=== PATIENT | male | born 2005 | race African-American/Black ===

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

== ENCOUNTER 2024-06-09 14:45 | Emergency (ER) | payer MEDICAID ==
[~2024-06-09] VITALS: Ht 182.9 cm; Wt 82.0 kg
--- NOTE | 2024-06-09 14:54 | ED.PDOC ---
HPI Allergic reaction HPI Comments 18Y M presents to ED via EMS for chief complaint allergic reaction x2days. Pt states he ate shrimp on Friday and then began to experience tongue swelling and muffled voice that same night. Pt has never experienced a reaction from shrimp before. No other symptoms reported. Time Seen by MD: 14:45 Primary Care Provider: NONE Reviewed Notes: Nurses Notes, Supervisor Coremaker Notes, Medications, Allergies Allergies: Coded Allergies: NO KNOWN ALLERGIES (Unverified , 07/11/17) Information Source: Patient, Friend, Emergency Med Personnel Mode of Arrival: EMS Brought in by: EMS Severity: Mild Rash: None SOB: None Difficulty swallowing: Mild Pruritus: None Timing: Days Duration: Since onset Prehospital treatment: None Location: Face, Tongue Exposed to: Food Developed: Facial Swelling History of: None Modyifying Factors: Not Used Associated Sign and Symptoms: None Past Medical History PAST MEDICAL HISTORY: Denies Surgical History: Denies all surgeries Family History Family History: Unknown Social History Smoker: Non-Smoker Alcohol: Denies ETOH Use Drugs: Denies Drug Use Lives In: Home Constitutional: denies: chills, diaphoresis, fatigue, fever, malaise, sweats, weakness, others EENTM: reports: mouth swelling (tongue), voice changes; denies: blurred vision, double vision, ear bleeding, ear discharge, ear drainage, ear pain, ear ringing, eye pain, eye redness, hearing loss, mouth pain, nasal discharge, nose bleeding, nose congestion, nose pain, photophobia, tearing, throat pain, throat swelling, others Respiratory: denies: cough, hemoptysis, orthopnea, SOB at rest, shortness of breath, SOB with excertion, stridor, wheezing, others Cardiovascular: denies: chest pain, dizzy spells, diaphoresis, Dyspnea on exertion, edema, irregular heart beat, left arm pain, lightheadedness, palpitations, PND, syncope, others Gastrointestinal: denies: abdomen distended, abdominal pain, blood streaked bowels, constipated, diarrhea, dysphagia, difficulty swallowing, hematemesis, melena, nausea, poor appetite, poor fluid intake, rectal bleeding, rectal pain, vomiting, others Genitourinary: denies: burning, dysuria, flank pain, frequency, hematuria, incontinence, penile discharge, penile sore, pain, testicle pain, testicle swelling, urgency, others Neurological: denies: dizziness, fainting, headache, left sided numbness, left sided weakness, numbness, paresthesia, pre-existing deficit, right sided numbne ss, right sided weakness, seizure, speech problems, tingling, tremors, weakness, others Musculoskeletal: denies: back pain, gout, joint pain, joint swelling, muscle pain, muscle stiffness, neck pain, others Integumetry: denies: bruises, change in color, change in hair/nails, dryness, laceration, lesions, lumps, rash, wounds, others Allergic/Immunocompromised: denies: Difficulty Healing, Frequent Infections, Hives, Itching, others Hematologic/Lymphatic: denies: anemia, blood clots, easy bleeding, easy bruising, swollen glands, others Endocrine: denies: excessive hunger, excessive sweating, excessive thirst, excessive urination, flushing, intolerance to cold, intolerance to heat, unexplained weight gain, unexplained weight loss, others Psychiatric: denies: anxiety, bipolar disorder, depression, hopeless, panic disorder, schizophrenia, sleepless, suicidal, others All Other Systems: Reviewed and Negative Physical Exam General Appearance: No Apparent Distress, Normal HEENT: Other (tongue swelling, muffled voice) Neck: Full Range of Motion, Non-Tender, Normal, Normal Inspection Respiratory: Chest Non-Tender, Lungs Clear, No Accessory Muscle Use, No Respiratory Distress, Normal Breath Sounds Cardiovascular: No Edema, No JVD, No Murmur, No Gallop, Normal Peripheral Pulses, Regular Rate/Rhythm Breast Exam: Deferred Gastrointestinal: No Organomegaly, Non Tender, No Pulsatile Mass, Normal Bowel Sounds, Soft Genitalia: Deferred Pelvic: Deferred Rectal: Deferred Extremities: No calf tenderness, Normal capillary refill, Normal inspection, Normal range of motion, Non-tender, No pedal edema Musculoskeletal : Apperance: Normal Neurologic: Alert, lithographic platemaker II-XII nml as Tested, No Motor Deficits, Normal Affect, Normal Mood, No Sensory Deficits Cerebellar Function: NOT DONE Reflexes: NOT DONE Skin: Dry, Normal Color, Warm Lymphatic: No Adenopathy Was a procedure done? Was a procedure done?: No Differential diagnosis (all) Differential Diagnosis: Anaphylaxis, Angioedema, Bronchospasm, Respiratory Failure X-Ray, Labs, Meds, VS Vital Signs Date Time Temp Pulse Resp B/P (MAP) Pulse Ox O2 Delivery O2 Flow Rate FiO2 06/09/24 16:02 74 18 99 Room Air* 0 21 06/09/24 15:35 74 18 143/93 (110) 99 06/09/24 15:35 74 18 98 Room Air 06/09/24 15:03 18 98 Room Air* 0 21 06/09/24 15:03 100.0 96 18 106/73 (84) 97 Current Medications Medications (Trade) Dose Ordered Sig/Jose Route Start Time Stop Time Status Last Admin Methylprednisolone Sodium Succinate (Solu Medrol) 125 mg ONCE ONCE IV 06/09/24 15:00 06/09/24 15:01 DC 06/09/24 15:52 Famotidine (Pepcid Injection) 20 mg ONCE ONCE IV 06/09/24 15:00 06/09/24 15:01 DC 06/09/24 15:52 Diphenhydramine HCl (Benadryl Injection) 50 mg ONCE ONCE IV 06/09/24 15:00 06/09/24 15:01 DC 06/09/24 15:52 Sodium Chloride 1,000 ml @ 1,000 mls/hr Q1H ONCE IV 06/09/24 15:00 06/09/24 15:59 DC 06/09/24 15:00 Epinephrine HCl 0.3 mg ONCE ONCE SC 06/09/24 16:15 06/09/24 16:16 DC 06/09/24 16:12 X-Ray, Labs, Meds, VS Comment 18-year-old male who presented with an allergic reaction endorsed to me by Dr. Jang to re-evaluate and disposition. Current vitals are unremarkable. Oxygen saturation is 99% on room air Exam is remarkable for mild tongue edema and a slightly muffled voice. Patient states he feels this has significantly improved and he feels comfortable. Patient was medicated in the ED with IV normal saline, Benadryl, Pepcid and Solu-Medrol as well as subQ epi ordered by Dr. Jang. On re-evaluation at 6:36 p.m., patient states he feels better. I offered hospitalization if he was not feeling well enough to go home. He states he felt significantly better and did not feel he required hospitalization. He stated he would prefer to go home and follow-up with his primary physician as an outpatient. Rx cetirizine, Pepcid, prednisone, epipen Time of 1ST Reevaluation: 15:15 Reevaluation 1ST: Unchanged Time of 2ND Reevaluation: 18:37 Reevaluation 2ND: Improved Patient Education/Counseling: Diagnosis, Treatment Family Education/Counseling: Diagnosis, Treatment Departure 1 Departure Time of Disposition: 18:37 Impression: Primary Impression: Allergic reaction Qualified Codes: T78.40XA - Allergy, unspecified, initial encounter Disposition: HOME / SELF CARE / HOMELESS Condition: Stable Additional Instructions: Follow-up with your primary doctor in 1-2 days. Return to ER for persistent or worsening symptoms. I have prescribed antihistamines and steroids to treat your symptoms. e-Prescriptions Epinephrine (Anaphylaxis) (Auvi-Q) 0.1 Mg/0.1 Ml Inj 0.1 MG IJ O PRN for 1 Day, #1 INJ prn severe allergic reaction. call 911 after administration. Prov: SAMUEL GAMINO MD 06/09/24 Prednisone (Prednisone) 20 Mg Tab 40 MG PO DAILY for 4 Days, #8 TAB Prov: SAMUEL GAMINO MD 06/09/24 Famotidine (Pepcid AC) 20 Mg Tab 20 MG PO BID PRN, #30 TAB prn allergy symptoms Prov: SAMUEL GAMINO MD 06/09/24 Cetirizine Hcl (Kls Aller-Negra) 10 Mg Tab 1 TAB PO DAILY PRN, #30 TAB 3 Refills prn allergy symptoms Prov: SAMUEL GAMINO MD 06/09/24 Discharged With: Relative Critical Care Note Critical Care Time?: No Stability Stability form required: No Heart Score Heart Score: Heart Score Response (Comments) Value History N/A 0 EKG N/A 0 Age N/A 0 Risk Factors N/A 0 Troponin N/A 0 Total 0 I personally scribed for LAKISHA JANG MD ([email or web address]) on 06/09/24 at 14:54. Electronically submitted by Debra Flynn ([facility]). LAKISHA JANG MD Jun 09, 2024 14:54 SAMUEL GAMINO MD Jun 09, 2024 18:41
[2024-06-09] MEDS: SODIUM CHLORIDE 0.9% 1,000 ML IV ONE (15:00)
[2024-06-09] MEDS: diphenhdrAMINE HCL 50 MG/1 ML VL IV ONE (15:52)
[2024-06-09] MEDS: methylPREDNISolone SOD SUCC 125 MG/2 ML VL IV ONE (15:52)
[2024-06-09] MEDS: FAMOTIDINE (10MG/ML) 2ML VL IV ONE (15:52)
[2024-06-09 16:02] VITALS: PULSE 74; RESP 18; O2SAT 99
[2024-06-09] MEDS: EPINEPHrine HCL 1 MG/1 ML AMP SC ONE (16:12)
[2024-06-09] MEDS ORDERED: EPIN0.1I11 IJ (18:41)
[2024-06-09] MEDS ORDERED: FAMO-161 PO (18:41)
[2024-06-09] MEDS ORDERED: CETI10TA2 PO (18:41)
[2024-06-09] MEDS ORDERED: PRED20TA2 PO (18:41)
[2024-06-09 19:01] VITALS: BP 143/91; PULSE 81; RESP 18; TEMP 99.4; O2SAT 96
== END 2024-06-09 19:03 | disposition home or self-care (01) ==
LOC: ER 14:45 → EDBD 14:45 → ER 19:03
DX: T78.1XXA Other adverse food reactions, not elsewhere classified, initial encounter (principal); R22.0 Localized swelling, mass and lump, head; X58.XXXA Exposure to other specified factors, initial encounter
CPT/HCPCS: 96361; 96372; 96374; 96375; 99284; J0171; J1200; J2919; J3490; J7030

== ENCOUNTER 2024-06-29 03:47 | Inpatient (IN) | payer MEDICAID ==
[~2024-06-29] VITALS: Ht 182.9 cm; Wt 84.7 kg
[~2024-06-29 03:47] MED LIST: CETI10TA2 PO; EPIN0.1I11 IJ; FAMO-161 PO; PRED20TA2 PO
[2024-06-29 04:22] VITALS: PULSE 73; RESP 18; O2SAT 99
[2024-06-29 04:29] LABS: Basophils # (auto) 0.1 10 ^3/uL (0-0.2); Basophils % (auto) 0.8 % (0.0-2.0); Eosinophils % (auto) 0.5 % (0.0-7.0); Hemoglobin 13.9 g/dL (13.5-17.5)
[2024-06-29 04:31] LABS: Eosinophils # (auto) 0 10 ^3/uL (0-0.8); Hematocrit 41.5 % (41.0-53.0); Lymphocytes # (auto) 1.3 10 ^3/uL (0.4-5.4); Lymphocytes % (auto) 12.3 % (10.0-50.0); Mean Corpuscular Hemoglobin 29.8 pg (28.0-32.0); Mean Corpuscular Hgb Conc. 33.5 g/dL (32.0-36.0); Mean Corpuscular Volume 89.2 fL (80.0-100.0); Monocytes # (auto) 0.8 10 ^3/uL (0-1.3); Monocytes % (auto) 7.4 % (0.0-12.0); Neutrophils # (auto) 8.1 10 ^3/uL (1.6-8.6); Red Blood Cells 4.65 10^6/uL (4.5-5.90); Red Cell Distribution Width 13.9 % (11.8-14.3); White Blood Cell 10.2 10^3/uL (4.4-10.8)
[2024-06-29] MEDS: SODIUM CHLORIDE 0.9% 1,000 ML IV ONE (04:37)
[2024-06-29] MEDS: levETIRAcetam 1000 mg/100ml 100 ML IV ONE (04:37)
[2024-06-29 04:38] LABS: Alanine Aminotransferase 25 U/L (7-40); Albumin 4.1 g/dL (3.2-4.8); Alkaline Phosphatase 102 U/L (46-116); Anion Gap 9 (5-15); Aspartate Aminotransferase 22 U/L (13-40); BUN/Creatinine Ratio 13.8 (10.0-20.0); Blood Urea Nitrogen 15 mg/dL (9-23); Calcium 9.5 mg/dL (8.7-10.4); Carbon Dioxide 26 mmol/L (20-31); Chloride 105 mmol/L (98-107); Potassium 3.6 mmol/L (3.5-5.1); Sodium 140 mmol/L (136-145)
[2024-06-29 04:39] LABS: Bilirubin, Total 0.7 mg/dL (0.2-1.0)
[2024-06-29 04:45] LABS: Glucose 134 mg/dL (74-106)
[2024-06-29 05:04] LABS: Platelet Count (auto) 175 10^3/uL (140-450)
[2024-06-29 05:13] LABS: Blood Alcohol < 3.0 mg/dL (<10)
[2024-06-29 05:20] LABS: Platelet Estimate Adequa
[2024-06-29 05:22] LABS: Large Platelets FEW
--- NOTE | 2024-06-29 05:32 | DVH ---
EXAM: CT HEAD WITHOUT CONTRAST INDICATION: seizure TECHNIQUE: CT of the head without intravenous contrast. Coronal and sagittal reformatted images are s ubmitted. Radiation Dose : 1. Head: CT Dose: CTDI volume is 58.9 mGy. Dose-length product is 940.5 mGy*cm The dose indicators for CT are the volume Computed Tomography (CT) Dose Index (CTDIvol) and the Dose Length Product (DLP), and are measured in units of mGy and mGy-cm, respectively. These indicators are not patient dose, but values generated from the CT scanner acquisition factors. The report includes radiation exposure data for exposures received during this examination. All CT scans at this medical facility are performed using dose modulation techniques as appropriate to a performed exam including the following: Automated exposure control was utilized; adjustment of the MA and/or KV according to patient size; and use of iterative reconstruction technique. COMPARISON: None FINDINGS: There is no evidence of acute intracranial hemorrhage, extra-axial collection, mass effect, midline s hift, herniation or hydrocephalus. The ventricles, sulci and cisterns are age appropriate. The thibodeaux-white differentiation is intact. The visualized paranasal sinuses and mastoid air cells are clear. No depressed calvarial fracture. The surrounding soft tissues are unremarkable. IMPRESSION: 1. No evidence of acute intracranial abnormality.
--- NOTE | 2024-06-29 05:33 | DVH ---
CHEST RADIOGRAPH Indication: seizure Technique: Single frontal view of the chest was obtained Comparison: None FINDINGS: Lines and Tubes: None Lungs: No focal consolidation. Pleura: No effusion. No pneumothorax. Cardiomediastinal contours: Unremarkable Bones: No acute osseous abnormality. IMPRESSION: 1. No acute cardiopulmonary disease.
--- NOTE | 2024-06-29 05:41 | ECG ---
[facility] Test Date: 2024-06-29 Test Time: 04:10:31 Pat Name: ONIEL NÚÑEZ Department: ED Room: 0221T Gender: M [employer] Floor Walker: EVETTE : 2005 Requested By: SAMUEL SANDOVAL Order Number: [id number] Reading MD: Kristopher Sheldon Measurements Intervals [place] Rate: 74 P: 68 [place]: 159 QRS: -72 QRSD: 100 T: 50 QT: 373 QTc: 414 Interpretive Statements Sinus rhythm Incomplete RBBB and LAFB ST elevation, consider inferior injury Electronically Signed On 07-03-2024 17:30:32 PST by Kristopher Sheldon Please click the below link to view image of tracing.
--- NOTE | 2024-06-29 05:46 | ED.PDOC ---
HPI (NEURO) HPI Comments 19-year-old male brought in by EMS from home after a tonic-clonic seizure. Patient's mother states the patient was noted to have body shaking, had his eyes open, but was unresponsive. Family assisted him to the ground, so there was no trauma or injury. The episode lasted about 2 minutes. On arrival to the ER, the patient is alert, can follow commands, was ambulatory to the [facility] according to EMS, but has expressive aphasia. He denies any pain, injury or recent illness. His mother states several days ago he had an episode of right upper extremity numbness and weakness that lasted about 30 minutes, then spontaneously resolved. His mother also states he has a history of a seizure that occurred in [place] with similar symptoms including right upper extremity numbness that resolved. 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 He is not on any anti seizure medications. Chief Complaint: Seizure Time Seen by MD: 04:00 Primary Care Provider: UNKNOWN Mode of Arrival: EMS Past Medical History Past Medical History (Other): Azorgnp-Fhhcl-Iklmv disease Surgical History: Denies all surgeries Family History Family History: Reviewed,noncontributory to illness Social History Smoker: Non-Smoker Alcohol: Denies ETOH Use Drugs: Denies Drug Use Lives In: Home All Other Systems: Reviewed and Negative (Comprehensive systems review obtained and negative except for what is stated in the HPI.) Physical Exam General Appearance: No Apparent Distress HEENT: PERRL/EOMI, Other (Face symmetric.) Neck: Limited Range of Motion, Normal Inspection Respiratory: Lungs Clear, No Accessory Muscle Use, No Respiratory Distress, Normal Breath Sounds Cardiovascular: No Edema, No JVD, Regular Rate/Rhythm Breast Exam: Deferred Gastrointestinal: Non Tender, Soft Genitalia: Deferred Pelvic: Deferred Rectal: Deferred Extremities: Normal inspection, Normal range of motion, Non-tender, No pedal edema Neurologic: Alert (Oriented x4), No Motor Deficits, Normal Affect, Normal Mood, No Sensory Deficits, Speech Problem (Expressive aphasia) Cerebellar Function: NOT DONE Reflexes: NOT DONE Skin: Dry, Normal Color, Warm Lymphatic: NOT DONE EKG EKG : Comments Sinus rhythm, rate 74, normal intervals, normal axis, incomplete right bundle- branch block and left anterior fascicular block, nonspecific T change. Was a procedure done? Was a procedure done?: No Differential Diagnosis (SZ) Seizure: Alcohol Withdrawl, CVA/TIA, Epilepsy-Break Through CVA: Electrolyte Imbalance, Hypoglycemia, Mass Lesion General Weakness: Dysrhythmia Headache: Migraine, Epidural Hemorrhage, Intracerebral Hemorrhage, Subarachnoid Hemorrhage, Subdural Hemorrhage, Meningitis X-Ray, Labs, Meds, VS Vital Signs Date Time Temp Pulse Resp B/P (MAP) Pulse Ox O2 Delivery O2 Flow Rate FiO2 06/29/24 04:22 97.0 73 18 125/67 (86) 99 97.0 06/29/24 04:22 73 18 99 Room Air* 0 21 06/29/24 04:10 74 06/29/24 03:59 96.8 78 18 137/82 (100) 99 Lab Test 06/29/24 04:00 Range/Units White Blood Count 10.2 4.4-10.8 10^3/uL Red Blood Count 4.65 4.5-5.90 10^6/uL Hemoglobin 13.9 13.5-17.5 g/dL Hematocrit 41.5 41.0-53.0 % Mean Corpuscular Volume 89.2 80.0-100.0 fL Mean Corpuscular Hemoglobin 29.8 28.0-32.0 pg Mean Corpuscular Hemoglobin Concent 33.5 32.0-36.0 g/dL Red Cell Distribution Width 13.9 11.8-14.3 % Platelet Count 175 140-450 10^3/uL Mean Platelet Volume 10.1 6.9-10.8 fL Neutrophils (%) (Auto) 79.0 37.0-80.0 % Lymphocytes (%) (Auto) 12.3 10.0-50.0 % Monocytes (%) (Auto) 7.4 0.0-12.0 % Eosinophils (%) (Auto) 0.5 0.0-7.0 % Basophils (%) (Auto) 0.8 0.0-2.0 % Neutrophils # (Auto) 8.1 1.6-8.6 10 ^3/uL Lymphocytes # (Auto) 1.3 0.4-5.4 10 ^3/uL Monocytes # (Auto) 0.8 0-1.3 10 ^3/uL Eosinophils # (Auto) 0 0-0.8 10 ^3/uL Basophils # (Auto) 0.1 0-0.2 10 ^3/uL Nucleated Red Blood Cells 0.0 % Platelet Estimate [place] Clumped Platelets Many Large Platelets Few Sodium Level 140 136-145 mmol/L Potassium Level 3.6 3.5-5.1 mmol/L Chloride Level 105 98-107 mmol/L Carbon Dioxide Level 26 20-31 mmol/L Anion Gap 9 5-15 Blood Urea Nitrogen 15 9-23 mg/dL Creatinine 1.09 0.700-1.30 mg/dL Glomerular Filtration Rate Calc 99 >90 mL/min BUN/Creatinine Ratio 13.8 10.0-20.0 Serum Glucose 134 H 74-106 mg/dL Calcium Level 9.5 8.7-10.4 mg/dL Total Bilirubin 0.7 0.2-1.0 mg/dL Aspartate Amino Transferase (AST) 22 13-40 U/L Alanine Aminotransferase (ALT) 25 7-40 U/L Alkaline Phosphatase 102 46-116 U/L Troponin I High Sensitivity < 3 L </=54 ng/L Total Protein 7.0 5.7-8.2 g/dL Albumin 4.1 3.2-4.8 g/dL Plasma/Serum Blood Alcohol < 3.0 <10 mg/dL Current Medications Medications (Trade) Dose Ordered Sig/Jose Route Start Time Stop Time Status Last Admin Levetiracetam 100 ml @ 400 mls/hr ONCE ONCE IV 06/29/24 04:15 06/29/24 04:29 DC 06/29/24 04:37 Sodium Chloride 1,000 ml @ 1,000 mls/hr Q1H ONCE IV 06/29/24 04:30 06/29/24 05:29 DC 06/29/24 04:37 PROCEDURE(s): HWOCT - HEAD WITHOUT CONTRAST REASON: seizure ORDER NUMBER(s): [id number], ACCESSION NUMBER(s): [id number] EXAM: CT HEAD WITHOUT CONTRAST INDICATION: seizure TECHNIQUE: CT of the head without intravenous contrast. Coronal and sagittal reformatted images are submitted. Radiation Dose : 1. Head: CT Dose: CTDI volume is 58.9 mGy. Dose-length product is 940.5 mGy*cm The dose indicators for CT are the volume Computed Tomography (CT) Dose Index (CTDIvol) and the Dose Length Product (DLP), and are measured in units of mGy and mGy-cm, respectively. These indicators are not patient dose, but values generated from the CT scanner acquisition factors. The report includes radiation exposure data for exposures received during this examination. All CT scans at this medical facility are performed using dose modulation techniques as appropriate to a performed exam including the following: Automated exposure control was utilized; adjustment of the MA and/or KV according to patient size; and use of iterative reconstruction technique. COMPARISON: None FINDINGS: There is no evidence of acute intracranial hemorrhage, extra-axial collection, mass effect, midline shift, herniation or hydrocephalus. The ventricles, sulci and cisterns are age appropriate. The thibodeaux-white differentiation is intact. The visualized paranasal sinuses and mastoid air cells are clear. No depressed calvarial fracture. The surrounding soft tissues are unremarkable. IMPRESSION: 1. No evidence of acute intracranial abnormality. EDURE(s): CXRP - CHEST PORTABLE REASON: seizure ORDER NUMBER(s): [id number], ACCESSION NUMBER(s): [id number] CHEST RADIOGRAPH Indication: seizure Technique: Single frontal view of the chest was obtained Comparison: None FINDINGS: Lines and Tubes: None Lungs: No focal consolidation. Pleura: No effusion. No pneumothorax. Cardiomediastinal contours: Unremarkable Bones: No acute osseous abnormality. IMPRESSION: 1. No acute cardiopulmonary disease. X-Ray, Labs, Meds, VS Comment 19-year-old male with a history of Zknzpwl-Jisol-Rrofy disease brought in by EMS from home status post tonic-clonic seizure witnessed by family. Patient exhibited initial expressive aphasia. Vitals unremarkable Exam remarkable for initial expressive aphasia Rhythm strip independently interpreted by me: Sinus rhythm, rate 74, no ectopy. Head CT unremarkable Chest x-ray unremarkable CBC, metabolic panel, troponin and alcohol level unremarkable. UA and urine drug screen pending Patient treated with the following in the ED: 1 L 0.9 normal saline IV bolus, Keppra 1 g IV On re-evaluation, patient's expressive aphasia has resolved. He has no focal neurologic deficit, and there has been no further seizure activity. Plan is to admit the patient for neurology evaluation. Images Reviewed?: Images reviewed and evaluated by me Time of 1ST Reevaluation: 05:45 Reevaluation 1ST: Improved Patient Education/Counseling: Diagnosis, Treatment Family Education/Counseling: Diagnosis, Treatment Departure 1 Departure Time of Disposition: 05:45 Impression: Primary Impression: Seizure Disposition: ADMITTED INPATIENT Admit to: Tele Condition: Guarded Critical Care Note Critical Care Time?: No Stability Stability form required: No Heart Score Heart Score: Heart Score Response (Comments) Value History N/A 0 EKG N/A 0 Age N/A 0 Risk Factors N/A 0 Troponin N/A 0 Total 0 SAMUEL GAMINO MD Jun 29, 2024 05:46
--- NOTE | 2024-06-29 07:34 | DVHHP2 ---
History of Present Illness Reason for Visit: Seizure History of Present Illness Roxanne Moreno is a 19-year-old male with past medical history of seizure 5 years ago 1 time, that he is not medicated for. Patient came into ER for seizure. Patient states that for about the last week he has been experiencing right leg numbness and weakness. Last night the numbness went to his right arm as well. While he was in bed last night he began having difficulty talking. Patient lives with his Mother, but was unable to move to get her, so he called her, but could only mostly grunt, he was having difficulty getting any words out. She came and assisted him out to the living room, while there he began to shake and have seizure like activity. She called EMS. When EMS arrived the patient remembers them speaking to him, but he was having difficulty speaking. When he arrived to ER he was still having difficulty speaking. It has improved over the last few hours. On my assessment he was clear and able to tell me what happened. His night RN stated that is the clearest he has been able to speak. Patient states the numbness on his right side has improved as well. About 5 years ago he had a similar experience was diagnosed with [id number], no medications were started. CHEMICAL HANDLER: Seizure (5 years ago) Past Surgical History: None Family History: None Smoke: No ALCOHOL: rare Drugs: None Lives: with Family Domestic Violence: Neg Review of Systems Constitutional: No: Fever, Chills, Sweats, Weakness, Malaise, Other Eyes: No: Pain, Vision change, Conjunctivae inflammation, Eyelid inflammation, Other, Redness ENT: No: Ear pain, Ear discharge, Nose pain, Nose discharge, Nose congestion, Mouth pain, Mouth swelling, Throat pain, Throat swelling, Other Respiratory: No: Cough, Dry, Shortness of breath, SOB with excertion, Wheezing, Hemoptysis, Pleuritic Pain, Sputum, Wheezing, Other Cardiovascular: No: Chest Pain, Palpitations, Orthopnea, Paroxysmal Noc. Dyspnea, Edema, Lt Headedness, Other Gastrointestinal: No: Nausea, Vomiting, Abdominal Pain, Diarrhea, Constipation, Melena, Hematochezia, Other Genitourinary: No Dysuria, No Frequency, No Incontinence, No Hematuria, No Retention, No Other Musculoskeletal: No: other, neck pain, shoulder pain, arm pain, back pain, hand pain, leg pain, foot pain Skin: No: Rash, Lesions, Jaundice, Bruising, Other Neurological: Weakness, Numbness, Change in speech, Seizures; No: Incoordination, Confusion, Other Allergies: Coded Allergies: NO KNOWN ALLERGIES (Unverified , 07/11/17) Exam Vital Signs Vital Signs Date Time Temp Pulse Resp B/P (MAP) Pulse Ox O2 Delivery O2 Flow Rate FiO2 06/29/24 06:30 95 18 98/47 (64) 99 06/29/24 04:22 97.0 97.0 06/29/24 04:22 Room Air* 0 21 General Appearance: Alert, Oriented X3, Cooperative, mild distress HEENT: Atraumatic, PERRLA, Mucous membr. moist/pink Respiratory: Clear to auscultation, Normal air movement Cardiovascular: Regular rate, Normal S1, Normal S2, No murmurs Abdominal: Normal bowel sounds, No tenderness Extremities: No clubbing, No cyanosis, No edema, Normal pulses Skin: No rashes, No breakdown, No significant lesion Neuro: Normal gait, Normal speech, Strength at 5/5 X4 ext Psych/Mental Status: Mental status NL, Mood NL Labs/Xrays Labs Test 06/29/24 04:00 Range/Units White Blood Count 10.2 4.4-10.8 10^3/uL Red Blood Count 4.65 4.5-5.90 10^6/uL Hemoglobin 13.9 13.5-17.5 g/dL Hematocrit 41.5 41.0-53.0 % Mean Corpuscular Volume 89.2 80.0-100.0 fL Mean Corpuscular Hemoglobin 29.8 28.0-32.0 pg Mean Corpuscular Hemoglobin Concent 33.5 32.0-36.0 g/dL Red Cell Distribution Width 13.9 11.8-14.3 % Platelet Count 175 140-450 10^3/uL Mean Platelet Volume 10.1 6.9-10.8 fL Neutrophils (%) (Auto) 79.0 37.0-80.0 % Lymphocytes (%) (Auto) 12.3 10.0-50.0 % Monocytes (%) (Auto) 7.4 0.0-12.0 % Eosinophils (%) (Auto) 0.5 0.0-7.0 % Basophils (%) (Auto) 0.8 0.0-2.0 % Neutrophils # (Auto) 8.1 1.6-8.6 10 ^3/uL Lymphocytes # (Auto) 1.3 0.4-5.4 10 ^3/uL Monocytes # (Auto) 0.8 0-1.3 10 ^3/uL Eosinophils # (Auto) 0 0-0.8 10 ^3/uL Basophils # (Auto) 0.1 0-0.2 10 ^3/uL Nucleated Red Blood Cells 0.0 % Platelet Estimate Adequa Clumped Platelets Many Large Platelets Few Sodium Level 140 136-145 mmol/L Potassium Level 3.6 3.5-5.1 mmol/L Chloride Level 105 98-107 mmol/L Carbon Dioxide Level 26 20-31 mmol/L Anion Gap 9 5-15 Blood Urea Nitrogen 15 9-23 mg/dL Creatinine 1.09 0.700-1.30 mg/dL Glomerular Filtration Rate Calc 99 >90 mL/min BUN/Creatinine Ratio 13.8 10.0-20.0 Serum Glucose 134 H 74-106 mg/dL Calcium Level 9.5 8.7-10.4 mg/dL Total Bilirubin 0.7 0.2-1.0 mg/dL Aspartate Amino Transferase (AST) 22 13-40 U/L Alanine Aminotransferase (ALT) 25 7-40 U/L Alkaline Phosphatase 102 46-116 U/L Troponin I High Sensitivity < 3 L </=54 ng/L Total Protein 7.0 5.7-8.2 g/dL Albumin 4.1 3.2-4.8 g/dL Plasma/Serum Blood Alcohol < 3.0 <10 mg/dL EXAM: CT HEAD WITHOUT CONTRAST FINDINGS: There is no evidence of acute intracranial hemorrhage, extra-axial collection, mass effect, midline shift, herniation or hydrocephalus. The ventricles, sulci and cisterns are age appropriate. The thibodeaux-white differentiation is intact. The visualized paranasal sinuses and mastoid air cells are clear. No depressed calvarial fracture. The surrounding soft tissues are unremarkable. IMPRESSION: 1. No evidence of acute intracranial abnormality. CHEST RADIOGRAPH FINDINGS: Lines and Tubes: None Lungs: No focal consolidation. Pleura: No effusion. No pneumothorax. Cardiomediastinal contours: Unremarkable Bones: No acute osseous abnormality. IMPRESSION: 1. No acute cardiopulmonary disease. Assessment/Plan Assessment/Plan Assessment: Seizure, [id number], Plan: Admit to Tele, Neurology consult, Seizure precautions, PO Keppra BID, Consider MRI of brain, Regular diet, Plan discussed with: Patient Date of Service: Jun 29, 2024 Billing Provider: JAYLON MACIAS Common Visit Codes: [id number] INP/OBS CARE (HIGH) JAYLON MACIAS Jun 29, 2024 07:34
[2024-06-29] MEDS ORDERED: NITROGLYCERIN 0.4 MG SL TAB SL PRN (07:45)
[2024-06-29] MEDS ORDERED: MORPHINE SULFATE INJ 2 MG/ml SYRG IV PRN (07:45)
[2024-06-29] MEDS ORDERED: DOCUSATE SOD 100 MG CAP PO PRN (07:45)
[2024-06-29] MEDS ORDERED: ACETAMINOPHEN 325 MG TAB PO PRN (07:45)
[2024-06-29] MEDS ORDERED: ONDANSETRON HCL 4 MG/2 ML VIAL IV PRN (07:45)
[2024-06-29] MEDS ORDERED: LORazepam 2MG/ML-1ML VIAL IV PRN ×2 (07:45→10:45)
--- NOTE | 2024-06-29 09:28 | DVHINCON2 ---
Date of service: Jun 29, [address] Mc Reason for Consultation Seizure History of Present Illness Mr. Moreno is a 19 years old right-handed gentleman otherwise healthy, he came to the hospital with a chief company of seizure activity. 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 The patient was relates he had weakness on the whole right side, with difficult to speak (the jaw was locked, not able to move the tongue) for 1-1.5 hours. The patient remembers shaking all over body In the age of 12, the patient had one event in that the right arm than leg was weak but still able to move, and his speech was slurry About 9-10 years ago, he had 2 events when he was in recreational activity, he passed out completely with company amnesia, he was seen in the [facility] for four days, the patient was said to have "brain seizure" but he was not given any medical treatment on discharge He was no history of head trauma, intracranial infection, or family history of seizure disorder Mother suspect anxiety on him [phone], no answer Plasma alcohol, 06/29/2024: <3 CBC, 06/29/2024: Unremarkable CMP, 06/29/2024: Unremarkable CT head, 06/29/2024: No evidence of acute intracranial abnormality. Past Medical History No major medical problems, no anxiety Past Surgical History No surgeries Family History Diabetes Social History He was no history of smoking, no history of drug or alcohol abuse Allergies: Coded Allergies: NO KNOWN ALLERGIES (Unverified , 07/11/17) Home Meds Active Scripts Epinephrine (Anaphylaxis) (Auvi-Q) 0.1 Mg/0.1 Ml Inj, 0.1 MG IJ O PRN for 1 Day, #1 INJ prn severe allergic reaction. call 911 after administration. Prov:SAMUEL GAMINO MD 06/09/24 Prednisone (Prednisone) 20 Mg Tab, 40 MG PO DAILY for 4 Days, #8 TAB Prov:SAMUEL GAMINO MD 06/09/24 Famotidine (Pepcid AC) 20 Mg Tab, 20 MG PO BID PRN, #30 TAB prn allergy symptoms Prov:SAMUEL GAMINO MD 06/09/24 Cetirizine Hcl (Kls Aller-Negra) 10 Mg Tab, 1 TAB PO DAILY PRN, #30 TAB 3 Refills prn allergy symptoms Prov:SAMUEL GAMINO MD 06/09/24 Current Medications Current Medications Medications (Trade) Dose Ordered Sig/Jose Route PRN Reason Start Time Stop Time Status Last Admin Sodium Chloride (Saline Lock Ns) 10 ml Q8HR IV 06/29/24 14:00 Acetaminophen/ Hydrocodone Bitart ([place] 5/325MG Tab) 1 tab Q4HP PRN PO MODERATE PAIN (4-6 PAIN SCALE) 06/29/24 07:45 Ondansetron HCl (Zofran) 4 mg Q4HP PRN IV NAUSEA / VOMITING 06/29/24 07:45 Docusate Sodium (Colace Capsule) 100 mg BIDPRN PRN PO FOR CONSTIPATION 06/29/24 07:45 Acetaminophen (Tylenol Tablet) 650 mg Q6HP PRN PO PAIN SCALE 1-3 OR TEMP>100.4 06/29/24 07:45 Nitroglycerin (Ntrostat Sublingual) 0.4 mg Q5MINP PRN SL FOR CHEST PAIN 06/29/24 07:45 Morphine Sulfate 2 mg Q30M PRN IV FOR CHEST PAIN 06/29/24 07:45 Levetiracetam (Keppra Tablet) 500 mg BID PO 06/29/24 10:00 Lorazepam (Ativan Inj) 1 mg Q5MINP PRN IV SEIZURES 06/29/24 07:45 Review of Systems As above, the other systems are negative Vital Signs Vital Signs Date Time Temp Pulse Resp B/P (MAP) Pulse Ox O2 Delivery O2 Flow Rate FiO2 06/29/24 08:52 Room Air* 0 21 06/29/24 08:00 98.2 58 15 95/44 (61) 98 98.2 Physical Exam GENERAL EXAM: General: the patient is well developed and nourished. No acute distress. HEENT: Normocephalic, neck is supple, no carotid bruits. No mass. RESPIRATORY: Normal respiratory effort with symmetrical lung expansion. Lungs clear to auscultation. CARDIOVASCULAR: Regular rate and rhythm with no murmurs. S1, S2. ABDOMEN: Soft, nontender, normal bowel sound NEUROLOGICAL: MENTAL STATUS: Awake and alert. Oriented to person, place, time and general circumstances. Able to give personal history SPEECH, LANGUAGE, HIGHER CORTICAL FUNCTION: no aphasia or dysathria. CRANIAL NERVES: #2: Intact visual da silva to confrontation. The optic discs were sharp #3,4,6: Pupils are equal, round and reactive. EOMs full and conjugate. #5: Facial sensation intact in all three divisions bilaterally. Mandibular strength intact. #7: Facial muscles symmetrical and strength intact. #8: Hearing grossly normal to voice. #9,10: Uvula and soft palate rise in the midline. Swallow and voice are normal. #11: Trapezius and sternomastoid strength intact bilaterally. #12: Tongue midline. No fasciculations or atrophy. SENSATION: Sensation to touch and pinprick is normal. MOTOR: Normal tone in the upper and lower extremity. Normal muscle bulk. No f asciculations. No abnormal movements or posturing. Muscle strength of the major groups in the upper extremities is 5/5. Muscle strength of the major groups in the lower extremities is 5/5. REFLEXES: Deep tendon reflexes normal and symmetrical. No pathological reflexes. CEREBELLAR/COORDINATION: Finger to nose and heel to chappell are normal bilaterally. GAIT/STATION: deferred. Labs/Diagnostic Data Labs Test 06/29/24 07:56 06/29/24 04:00 Range/Units Troponin I High Sensitivity 3 L </=54 ng/L White Blood Count 10.2 4.4-10.8 10^3/uL Red Blood Count 4.65 4.5-5.90 10^6/uL Hemoglobin 13.9 13.5-17.5 g/dL Hematocrit 41.5 41.0-53.0 % Mean Corpuscular Volume 89.2 80.0-100.0 fL Mean Corpuscular Hemoglobin 29.8 28.0-32.0 pg Mean Corpuscular Hemoglobin Concent 33.5 32.0-36.0 g/dL Red Cell Distribution Width 13.9 11.8-14.3 % Platelet Count 175 140-450 10^3/uL Mean Platelet Volume 10.1 6.9-10.8 fL Neutrophils (%) (Auto) 79.0 37.0-80.0 % Lymphocytes (%) (Auto) 12.3 10.0-50.0 % Monocytes (%) (Auto) 7.4 0.0-12.0 % Eosinophils (%) (Auto) 0.5 0.0-7.0 % Basophils (%) (Auto) 0.8 0.0-2.0 % Neutrophils # (Auto) 8.1 1.6-8.6 10 ^3/uL Lymphocytes # (Auto) 1.3 0.4-5.4 10 ^3/uL Monocytes # (Auto) 0.8 0-1.3 10 ^3/uL Eosinophils # (Auto) 0 0-0.8 10 ^3/uL Basophils # (Auto) 0.1 0-0.2 10 ^3/uL Nucleated Red Blood Cells 0.0 % Platelet Estimate Adequa Clumped Platelets Many Large Platelets Few Sodium Level 140 136-145 mmol/L Potassium Level 3.6 3.5-5.1 mmol/L Chloride Level 105 98-107 mmol/L Carbon Dioxide Level 26 20-31 mmol/L Anion Gap 9 5-15 Blood Urea Nitrogen 15 9-23 mg/dL Creatinine 1.09 0.700-1.30 mg/dL Glomerular Filtration Rate Calc 99 >90 mL/min BUN/Creatinine Ratio 13.8 10.0-20.0 Serum Glucose 134 H 74-106 mg/dL Calcium Level 9.5 8.7-10.4 mg/dL Total Bilirubin 0.7 0.2-1.0 mg/dL Aspartate Amino Transferase (AST) 22 13-40 U/L Alanine Aminotransferase (ALT) 25 7-40 U/L Alkaline Phosphatase 102 46-116 U/L Total Protein 7.0 5.7-8.2 g/dL Albumin 4.1 3.2-4.8 g/dL Plasma/Serum Blood Alcohol < 3.0 <10 mg/dL Assessment Episodic event, with symptoms of grand mal seizure and Guzman's paralysis, but with atypical features ? Psychogenic seizure ? Epileptic seizure, at least the one occurred earlier this morning is not typical to epileptic seizures Plan/Recommendation Monitoring Supportive treatment Telemetry EEG MR brain scan Hold off seizure medication Ativan for seizure breakthrough The patient was advised to follow with his doctor on discharge More recommendation per clinical course Prognosis poor This medical document was created using an electronic medical record system with Dragon computerized dictation system. Although this document has been carefully reviewed, there may still be some phonetic and typographical errors. These areas are purely typographical due to imperfections of the software programs, and do not reflect any compromise in the patient's medical care. Plan discussed with: Patient, Other JENNA ELIZABETH MD Jun 29, 2024 09:28
[2024-06-29] MEDS: levETIRAcetam 500 MG TAB PO SCH ×2 (10:27→21:24)
[2024-06-29] MEDS: LORazepam 2MG/ML-1ML VIAL IV ONE (10:45)
[2024-06-29] MEDS: HYDROcodone-ACET 5/325MG TAB PO PRN (13:36)
[2024-06-29] MEDS: SODIUM CHLOR 0.9% PF (SALINE LOCK) 10ML VIAL/SYR IV SCH (14:15)
--- NOTE | 2024-06-29 14:39 | DVH ---
PROCEDURE: MRI BRAIN HEAD WO CONTRAST INDICATION: sz EXAM DATE: 06/29/2024 12:47 PM COMPARISON: None TECHNIQUE: MRI of the brain without intravenous contrast. FINDINGS: There is bilateral symmetric restricted diffusion in the parietal white matter with involvement of th e posterior corpus callosum. There is no evidence of acute intracranial hemorrhage, extra-axial collection, mass effect, midline s hift, herniation or hydrocephalus. The ventricles, sulci and cisterns appear age appropriate. There is subtle T2 hyperintensity in the regions of restricted diffusion. There are no signal abnormalities on the susceptibility weighted sequences. The major vascular flow voids are present. The visualized paranasal sinuses and mastoid air cells are clear. The surrounding soft tissues and o sseous structures are unremarkable. IMPRESSION: 1. Restricted diffusion in the bilateral parietal white matter and corpus callosum could represent is chemia secondary to seizure. Clinical correlation and continued follow-up is recommended. Critical Result: Stroke Alert Findings discussed with nurse Nicole taking care of the patient at 06/29/2024 02:31 PM, and acknowled ged receipt and understanding of the findings. HS:Y
[2024-06-29 17:41] VITALS: BP 123/71; PULSE 67; RESP 18; TEMP 97.8; O2SAT 100
[2024-06-29 20:00] VITALS: PULSE 89
[2024-06-29 21:00] VITALS: BP 135/60; PULSE 72; RESP 20; TEMP 98.1; O2SAT 99
--- NOTE | 2024-06-29 23:58 | DVHEEG2 ---
Neurology EEG Procedural Note Procedural Note EXAM DATE: 06/29/2024 REFERRING DOCTOR: Dr. Elizabeth TECHNIQUE: Eighteen channels of EEG, 2 channels of EOG, and 1 channel of EKG were recorded using the International 10/20 system. CLINICAL DATA medications: The patient was referred for an EEG evaluation for the evidence of seizure disorder. MEDICATIONS: See chart BACKGROUND ACTIVITY: While the patient was awake, the background activity consisted of well regulated 9-10 Hz rhythmic waveforms, symmetrically distributed over both posterior quadrants and was reactive to eye opening. ACTIVATION: Hyperventilation: Not done Photic Stimulation: Not done Sleep: Stage I & II IMPRESSION: This is a normal EEG. No focal, lateralized, or epileptiform features are noted. If clinically indicated to rule out a seizure disorder, recommend repeat EEG with sleep deprivation. The EKG channel showed a regular heart rate of 72/[place] [address] JENNA ELIZABETH MD Jun 29, 2024 23:58
[2024-06-30] VITALS (8 sets, daily range): BP systolic 119–137; BP diastolic 62–89; PULSE 68–86; RESP 16–20; TEMP 97.8–98.4; O2SAT 96–100
[2024-06-30 07:03] LABS: Basophils # (auto) 0.1 10 ^3/uL (0-0.2); Eosinophils # (auto) 0.1 10 ^3/uL (0-0.8); Neutrophils # (auto) 4.9 10 ^3/uL (1.6-8.6)
[2024-06-30 07:06] LABS: Basophils % (auto) 0.9 % (0.0-2.0); Eosinophils % (auto) 1.3 % (0.0-7.0); Hematocrit 39.8 % (41.0-53.0); Hemoglobin 14.3 g/dL (13.5-17.5); Lymphocytes % (auto) 25.2 % (10.0-50.0); Mean Corpuscular Hemoglobin 31.5 pg (28.0-32.0); Mean Corpuscular Hgb Conc. 35.8 g/dL (32.0-36.0); Mean Corpuscular Volume 88.1 fL (80.0-100.0); Monocytes # (auto) 0.9 10 ^3/uL (0-1.3); Monocytes % (auto) 11.1 % (0.0-12.0); Neutrophils % (auto) 61.5 % (37.0-80.0); Nucleated Red Blood Cells % 0.1 %; Red Blood Cells 4.52 10^6/uL (4.5-5.90); Red Cell Distribution Width 13.5 % (11.8-14.3)
[2024-06-30 07:23] LABS: Alanine Aminotransferase 23 U/L (7-40); Alkaline Phosphatase 99 U/L (46-116); Anion Gap 11 (5-15); Aspartate Aminotransferase 22 U/L (13-40); BUN/Creatinine Ratio 12.1 (10.0-20.0); Blood Urea Nitrogen 13 mg/dL (9-23); Calcium 9.5 mg/dL (8.7-10.4); Carbon Dioxide 23 mmol/L (20-31); Chloride 106 mmol/L (98-107); Glucose 87 mg/dL (74-106); Potassium 3.6 mmol/L (3.5-5.1); Sodium 140 mmol/L (136-145); Total Protein 7.1 g/dL (5.7-8.2)
[2024-06-30 07:24] LABS: Bilirubin, Total 0.8 mg/dL (0.2-1.0); Platelet Count (auto) 149 10^3/uL (140-450)
--- NOTE | 2024-06-30 09:27 | DVHPN2 ---
Progress Note - Dictate Date Seen: Jun 30, 2024 Medical Necessity Reason Pt with a Central, PICC or Fol: No Subjective Mr. Moreno is a 19 years old right-handed gentleman otherwise healthy, he came to the hospital with a chief company of seizure activity. I have seen and examined the patient was, I have discussed with his nurse. He was alert and fully oriented I have interviewed him, his mother again, he was again claimed that he remember shaking all over body on 06/29/2024, and he was remained the two events not happened 10 years ago This morning, he had one brief event where he could not talk/jaw locked, along with drooling Plasma alcohol, 06/29/2024: <3 CBC, 06/29/2024: Unremarkable CMP, 06/29/2024: Unremarkable EEG, 06/29/2024: Normal CT head, 06/29/2024: No evidence of acute intracranial abnormality MRI headache, 06/29/2024: Restricted diffusion in the bilateral parietal white matter and corpus callosum could represent ischemia secondary to seizure. Clinical correlation and continued follow-up is recommended vital signs Vital Sign Date Time Temp Pulse Resp B/P (MAP) Pulse Ox O2 Delivery O2 Flow Rate FiO2 06/30/24 08:13 Room Air* 0 21 06/30/24 05:00 98.1 71 18 121/79 (93) 100 98.1 Total Intake and Output 06/29/24 06/29/24 06/30/24 14:59 22:59 06:59 Intake Total 240 ml Balance 240 ml medications Current Medications Medications Dose Ordered Sig/Jose Route Start Time Stop Time Status Last Admin Dose Admin Sodium Chloride 10 ml Q8HR IV 06/29/24 14:00 06/30/24 06:00 10 ML Acetaminophen/ Hydrocodone Bitart 1 tab Q4HP PRN PO 06/29/24 07:45 06/29/24 13:36 1 TAB Ondansetron HCl 4 mg Q4HP PRN IV 06/29/24 07:45 Docusate Sodium 100 mg BIDPRN PRN PO 06/29/24 07:45 Acetaminophen 650 mg Q6HP PRN PO 06/29/24 07:45 Nitroglycerin 0.4 mg Q5MINP PRN SL 06/29/24 07:45 Morphine Sulfate 2 mg Q30M PRN IV 06/29/24 07:45 Lorazepam 1 mg Q5MINP PRN IV 06/29/24 10:45 Levetiracetam 500 mg BID PO 06/29/24 22:00 06/30/24 09:03 500 MG objective General: the patient is well developed and nourished. No acute distress. MENTAL STATUS: Subjective SPEECH, LANGUAGE, HIGHER CORTICAL FUNCTION: no aphasia or dysathria. CRANIAL NERVES: Pupils are equal, round and reactive. EOMs full and conjugate. Facial sensation intact in all three divisions bilaterally. Mandibular strength intact. Facial muscles symmetrical and strength intact. SENSATION: Sensation to touch and pinprick is normal. MOTOR: Normal tone in the upper and lower extremity. Normal muscle bulk. No fasciculations. No abnormal movements or posturing. Muscle strength of the major groups in the extremities is 5/5. REFLEXES: Deep tendon reflexes normal and symmetrical. No pathological reflexes. CEREBELLAR/COORDINATION: Finger to nose laboratory and microbiology Laboratory Tests 06/30/24 05:29 Test 06/30/24 05:29 Range/Units Serum Glucose 87 74-106 mg/dL Problem List Episodic event, with symptoms of grand mal seizure and Guzman's paralysis, but with atypical features ? Psychogenic seizure ? Epileptic seizure, at least the one occurred earlier this morning is not typical to epileptic seizures Per history, a least the three seizures he reported were nonepileptic in nature however the MRI brain scan is strongly suggestive of epileptic seizure Assessment/Plan Monitoring Supportive treatment Telemetry UDS Extra on Keppra 1000 mg today Keppra 500 mg b.i.d. Ativan for seizure breakthrough The patient was advised to follow with his doctor on discharge He has been advised to discuss with his family doctor Re: Consult Jason Eisenberg neurologist He has been advised not drive and he is cleared DMV report in the chart More recommendation per clinical course This medical document was created using an electronic medical record system with BRAINDIGIT dictation system. Although this document has been carefully reviewed, there may still be some phonetic and typographical errors. These areas are purely typographical due to imperfections of the software programs, and do not reflect any compromise in the patient's medical care. Prognosis poor Plan discussed with: Patient, Other Total Time (mins): 45 JENNA ELIZABETH MD Jun 30, 2024 09:27
--- NOTE | 2024-06-30 12:09 | DVHPN2 ---
Subjective Denies any symptoms Reviewed: Care Plan, H&P, Labs, Medications Changes from previous H/P or p: No Changes General: Per HPI Eyes: No Pain, No Vision change, No Conjunctivae inflammation, No Eyelid inflammation, No Other, No Redness ENT: No Ear pain, No Ear discharge, No Nose pain, No Nose discharge, No Nose congestion, No Mouth pain, No Mouth swelling, No Throat pain, No Throat swelling, No Other Cardiovascular: No Chest Pain, No Palpitations, No Orthopnea, No Paroxysmal Noc. Dyspnea, No Edema, No Lt Headedness, No Other Respiratory: No Cough, No Dry, No Shortness of breath, No SOB with excertion, No Wheezing, No Hemoptysis, No Pleuritic Pain, No Sputum, No Other Gastrointestinal: No Nausea, No Vomiting, No Abdominal Pain, No Diarrhea, No Constipation, No Melena, No Hematochezia, No Other Genitourinary: No Dysuria, No Frequency, No Incontinence, No Hematuria, No Retention, No Other Musculoskeletal: No other, No neck pain, No shoulder pain, No arm pain, No back pain, No hand pain, No leg pain, No foot pain Skin: No Rash, No Lesions, No Jaundice, No Bruising, No Other Objective Vitals Vital Signs Date Time Temp Pulse Resp B/P (MAP) Pulse Ox O2 Delivery O2 Flow Rate FiO2 06/30/24 09:00 98.4 81 18 124/89 (101) 98 98.4 06/30/24 08:13 Room Air* 0 21 Intake/Output Intake and Output 06/30/24 07:00 Intake Total 240 ml Balance 240 ml Intake Oral 240 ml # Voids 2 # Bowel Movements 1 General Appearance: Alert, Oriented X3, Cooperative, No acute distress HEENT: Atraumatic, PERRLA Lungs: Clear to auscultation Chest/Breasts: Lumps Cardiovascular: Normal S1, Normal S2 Abdomen: Normal bowel sounds, Soft, No tenderness, No hepatospenomegaly Genitourinary: No Apparent Abnormalities Musculoskeletal: Normal sensory function, Normal motor function Psych/Mental Status: Mental status NL, Mood NL Medications Current Medications Medications Dose Ordered Sig/Jose Route Start Time Stop Time Status Last Admin Dose Admin Sodium Chloride 10 ml Q8HR IV 06/29/24 14:00 06/30/24 06:00 10 ML Acetaminophen/ Hydrocodone Bitart 1 tab Q4HP PRN PO 06/29/24 07:45 06/29/24 13:36 1 TAB Ondansetron HCl 4 mg Q4HP PRN IV 06/29/24 07:45 Docusate Sodium 100 mg BIDPRN PRN PO 06/29/24 07:45 Acetaminophen 650 mg Q6HP PRN PO 06/29/24 07:45 Nitroglycerin 0.4 mg Q5MINP PRN SL 06/29/24 07:45 Morphine Sulfate 2 mg Q30M PRN IV 06/29/24 07:45 Lorazepam 1 mg Q5MINP PRN IV 06/29/24 10:45 Levetiracetam 500 mg BID PO 06/29/24 22:00 06/30/24 09:03 500 MG Laboratory Results Laboratory Tests 06/30/24 05:29 Chemistry Test 06/30/24 05:29 Albumin 4.0 g/dL (3.2-4.8) Calcium Level 9.5 mg/dL (8.7-10.4) Total Protein 7.1 g/dL (5.7-8.2) LFT Test 06/30/24 05:29 Alanine Aminotransferase (ALT) 23 U/L (7-40) Alkaline Phosphatase 99 U/L (46-116) Aspartate Amino Transferase (AST) 22 U/L (13-40) Total Bilirubin 0.8 mg/dL (0.2-1.0) Labs and/or images reviewed: Labs reviewed by me, Image(s) reviewed by me Assessment/Plan Assessment/Plan Impression: -Breakthrough seizures -? epilepsy Plan: -Pt had episode of jaw stiffness this am. -Neurology consult: Discussed case with Dr. Mari -Continue epileptics -Repeat labs in AM. Total time spent with patient: 35min. Plan discussed with: Patient, Other (RN) Date of Service: Jun 30, 2024 Billing Provider: INDIO COREAS NP Common Visit Codes: [id number] INP/OBS CARE(HIGH) INDIO COREAS NP Jun 30, 2024 12:09
[2024-06-30 13:40] LABS: Erythrocyte Sedimentation Rate 9 mm/hr (0-20)
[2024-07-01 00:44] VITALS: BP 125/71; PULSE 67; RESP 20; TEMP 98.1; O2SAT 100
[2024-07-01 04:40] VITALS: BP 121/64; PULSE 72; RESP 20; TEMP 97.8; O2SAT 100
[2024-07-01 07:31] LABS: Anion Gap 10 (5-15); Carbon Dioxide 24 mmol/L (20-31); Chloride 105 mmol/L (98-107); Potassium 3.6 mmol/L (3.5-5.1); Sodium 139 mmol/L (136-145)
[2024-07-01 07:33] LABS: Calcium 9.6 mg/dL (8.7-10.4)
[2024-07-01 07:34] LABS: Urine Bacteria None Seen /hpf (None Seen)
[2024-07-01 07:37] LABS: BUN/Creatinine Ratio 11.9 (10.0-20.0); Blood Urea Nitrogen 12 mg/dL (9-23); Glucose 86 mg/dL (74-106)
[2024-07-01 08:00] VITALS: PULSE 68
[2024-07-01 08:13] LABS: Amphetamine Screen, Urine Neg (NEGATIVE); Barbiturate Scree,Urine Neg (NEGATIVE); Benzodiazephine Screen, Urine Neg (NEGATIVE); Cannabinoid Screen, Urine Neg (NEGATIVE); Cocaine Screen, Urine Neg (NEGATIVE); Opiate Scree,Urine Neg (NEGATIVE); Phencyclidine Screen, Urine Neg (NEGATIVE)
[2024-07-01 08:23] LABS: Urine Blood Negative /uL (Negative); Urine Clarity Clear (Clear); Urine Color Light-Yellow (Yellow); Urine Mucus FEW (None Seen); Urine Protein, UAD Negative (Negative); Urine Specific Gravity 1.019 (1.001-1.035); Urine Sperm PRESENT /hpf (None Seen); Urine Squamous Epithelial Cell FEW /hpf (<5); Urine Urobilinogen Normal (Negative); Urine WBC < 1 /HPF (0-3); Urine pH 5.5 (5.0-9.0)
[2024-07-01 08:37] VITALS: BP 114/76; PULSE 61; RESP 18; TEMP 97.8; O2SAT 98
[2024-07-01] MEDS ORDERED: KEP500T PO (09:57)
--- NOTE | 2024-07-01 10:01 | DVHDS2 ---
Discharge Summary Date of Admission Jun 29, 2024 at 07:31 Date of Discharge: Jul 01, 2024 Admitting Diagnosis New onset seizure activity Labs/Diagnostic Data: Laboratory Results Test 07/01/24 06:07 07/01/24 04:30 06/30/24 12:04 06/30/24 05:29 Sodium Level 139 mmol/L (136-145) Potassium Level 3.6 mmol/L (3.5-5.1) Chloride Level 105 mmol/L (98-107) Carbon Dioxide Level 24 mmol/L (20-31) Anion Gap 10 (5-15) Blood Urea Nitrogen 12 mg/dL (9-23) Creatinine 1.01 mg/dL (0.700-1.30) Glomerular Filtration Rate Calc 109 mL/min (>90) BUN/Creatinine Ratio 11.9 (10.0-20.0) Serum Glucose 86 mg/dL (74-106) Calcium Level 9.6 mg/dL (8.7-10.4) Urine Color Light-yellow (Yellow) Urine Clarity Clear (Clear) Urine pH 5.5 (5.0-9.0) Urine Specific [place] 1.019 (1.001-1.035) Urine Protein Negative (Negative) Urine Ketones Negative (Negative) Urine Blood Negative /uL (Negative) Urine Nitrite Negative (Negative) Urine Bilirubin Negative (Negative) Urine Urobilinogen Normal mg/dL (Negative) Urine Leukocyte Esterase Negative /uL (Negative) Urine RBC 1 /hpf (0 - 3) Urine Microscopic WBC < 1 /HPF (0-3) Urine Squamous Epithelial Cells Few /hpf (<5) Urine Bacteria None seen /hpf (None Seen) Urine Mucus Few (None Seen) Urine Sperm Present /hpf (None Seen) Urine Glucose Normal mg/dL (Normal) Urine Opiates Screen Neg (NEGATIVE) Urine Fentanyl Screen Neg (NEGATIVE) Urine Barbiturates Screen Neg (NEGATIVE) Urine Phencyclidine Screen Neg (NEGATIVE) Urine Amphetamines Screen Neg (NEGATIVE) Urine Benzodiazepines Screen Neg (NEGATIVE) Urine Cocaine Screen Neg (NEGATIVE) Urine Cannabinoids Screen Neg (NEGATIVE) Erythrocyte Sedimentation Rate 9 mm/hr (0-20) C-Reactive Protein High Sensitivity 0.08 mg/dL (<1.0) White Blood Count 8.0 10^3/uL (4.4-10.8) Red Blood Count 4.52 10^6/uL (4.5-5.90) Hemoglobin 14.3 g/dL (13.5-17.5) Hematocrit 39.8 % (41.0-53.0) Mean Corpuscular Volume 88.1 fL (80.0-100.0) Mean Corpuscular Hemoglobin 31.5 pg (28.0-32.0) Mean Corpuscular Hemoglobin Concent 35.8 g/dL (32.0-36.0) Red Cell Distribution Width 13.5 % (11.8-14.3) Platelet Count 149 10^3/uL (140-450) Mean Platelet Volume 9.6 fL (6.9-10.8) Neutrophils (%) (Auto) 61.5 % (37.0-80.0) Lymphocytes (%) (Auto) 25.2 % (10.0-50.0) Monocytes (%) (Auto) 11.1 % (0.0-12.0) Eosinophils (%) (Auto) 1.3 % (0.0-7.0) Basophils (%) (Auto) 0.9 % (0.0-2.0) Neutrophils # (Auto) 4.9 10 ^3/uL (1.6-8.6) Lymphocytes # (Auto) 2.0 10 ^3/uL (0.4-5.4) Monocytes # (Auto) 0.9 10 ^3/uL (0-1.3) Eosinophils # (Auto) 0.1 10 ^3/uL (0-0.8) Basophils # (Auto) 0.1 10 ^3/uL (0-0.2) Nucleated Red Blood Cells 0.1 % Total Bilirubin 0.8 mg/dL (0.2-1.0) Aspartate Amino Transferase (AST) 22 U/L (13-40) Alanine Aminotransferase (ALT) 23 U/L (7-40) Alkaline Phosphatase 99 U/L (46-116) Total Protein 7.1 g/dL (5.7-8.2) Albumin 4.0 g/dL (3.2-4.8) Test 06/29/24 07:56 06/29/24 04:00 Troponin I High Sensitivity 3 ng/L (</=54) Platelet Estimate [place] Clumped Platelets Many Large Platelets Few Plasma/Serum Blood Alcohol < 3.0 mg/dL (<10) Other Laboratory Tests 07/01/24 06:07 06/30/24 05:29 Brief Hx & Hospital Course: History of Present Illness Roxanne Moreno is a 19-year-old male with past medical history of seizure 5 years ago 1 time, that he is not medicated for. Patient came into ER for seizure. Patient states that for about the last week he has been experiencing right leg numbness and weakness. Last night the numbness went to his right arm as well. While he was in bed last night he began having difficulty talking. Patient lives with his Mother, but was unable to move to get her, so he called her, but could only mostly grunt, he was having difficulty getting any words out. She came and assisted him out to the living room, while there he began to shake and have seizure like activity. She called EMS. When EMS arrived the patient remembers them speaking to him, but he was having difficulty speaking. When he arrived to ER he was still having difficulty speaking. It has improved over the last few hours. On my assessment he was clear and able to tell me what happened. His night RN stated that is the clearest he has been able to speak. Patient states the numbness on his right side has improved as well. About 5 years ago he had a similar experience was diagnosed with [id number], no medications were started. Course of hospitalization: Neurology consultation was obtained. Patient was loaded on Keppra, followed by 500 mg twice a day. Patient had MRI of the brain which did show changes coinciding with questionable seizure activity. Yesterday, patient had episode with aura and jaw tightness, with no other symptoms occurring since yesterday a.m.. Patient will be discharged once cleared by Neurology. Recommendations are for him to follow up with his PCP at [facility] and obtain referral for neurologist. Patient will be continued on Keppra 500 mg p.o. b.i.d.. Recommendations are to not drive, which Dr. Mari has placed the appropriate forms in the chart. Patient was agreeable with discharge plan. All questions answered. Physical examination General: Alert and Oriented x3. No acute distress. Well-nourished. Eyes: EOMI. Anicteric. HENT: Moist mucous membranes. Lungs: Clear to auscultation bilaterally. No accessory muscle use. Cardiovascular: Regular rate and rhythm. No murmur. No JVD. Abdomen: Soft, non-tender and non-distended. No palpable masses. Extremities: No edema. Non-tender. Skin: No rashes or lesions. Warm. Neurologic: No focal neurological deficits. CN II-XII grossly intact, but not individually tested. Psychiatric: Cooperative. Appropriate mood and affect. Total time spent with patient discussing and formulating plan of care: 35 minutes. This medical document was created using an electronic medical record system with [employer] dictation system. Although this document has been carefully reviewed, there may still be some phonetic and typographical errors. These areas are purely typographical due to imperfections of the software programs, and do not reflect any compromise in the patient's medical care. Consults/Reason for consult Neurology: New onset seizure activity Condition at Discharge: Fair Final Diagnosis/Problems List Breakthrough seizures Secondary diagnosis: Charcot Opal tooth Discharge Disposition: Home Discharge Instruct/Medications Diet: Regular Follow Up/Referral: PCP in 1-2 weeks Medications: Keppra 500 mg p.o. b.i.d. 36 Discharge Statement: "Patient was advised to return to the ER or call 911 if any headaches, dizziness, shortness of breath, chest pain, abdominal pain, bleeding, fevers, or worsening of medical condition. Patient was counseled about treatment plan, medications, possible side effects, patientverbalized understanding. All questions were answered to the best of my ability. This discharge took greater then 30 minutes in planning, reviewing documentation, counseling the patient, and discussing with other team members." ASSESSMENT ASSESSMENT Assessment Date of Service: Jul 01, 2024 Billing Provider: INDIO COREAS NP Common Visit Codes: 61821-RZH/OBS DISCH DAY >30min INDIO COREAS NP Jul 01, 2024 10:01
[2024-07-01 13:00] VITALS: BP 116/34; PULSE 73; RESP 20; TEMP 97.5; O2SAT 94
[2024-07-01 15:20] VITALS: BP 116/34; PULSE 73; RESP 20; TEMP 97.5; O2SAT 94
== END 2024-07-01 16:00 | disposition home or self-care (01) | DRG 53 ==
LOC: EDBD 03:47 → ER 03:47 → OVERFLOW 07:31 → ER 07:33 → TELE-CENTR 18:02
PROVIDERS: ADMIT Nurse Practitioner Acute Care; ATTEND Nurse Practitioner Acute Care
DX: G40.909 Epilepsy, unspecified, not intractable, without status epilepticus (principal); G60.0 Hereditary motor and sensory neuropathy; G83.84 Todd's paralysis (postepileptic); F06.8 Other specified mental disorders due to known physiological condition; Z83.3 Family history of diabetes mellitus; Z79.899 Other long term (current) drug therapy
CPT/HCPCS: 36415; 70450; 70551; 71045; 80048; 80053; 80307; 80320; 81001; 84484; 85025; 85652; 86141; 93005; 95819; 96365; G0378

== ENCOUNTER 2024-12-19 17:19 | Emergency (ER) | payer MEDICAID ==
[~2024-12-19] VITALS: Ht 182.9 cm; Wt 82.2 kg
[~2024-12-19 17:19] MED LIST changes: +KEP500T PO
[2024-12-19 17:20] VITALS: BP 139/86; PULSE 97; RESP 18; TEMP 100.1; O2SAT 98
--- NOTE | 2024-12-19 18:14 | ED.PDOC ---
Eye-HPI HPI Comments 19 y/o M, presents to the ED for CC of sore-throat. Patient states, he has been have a sore-throat with associated swelling and pain sudden onset, yesterday (12/18/24). Patient reports, having similar symptoms in the past approximately [id number] ago. Patient denies cough, nasal congestion, fever, difficulty swallowing, or shortness of breath. No other symptoms or modifying factors are present at this time. Chief Complaint: Sore Throat Time Seen by MD: 18:00 Primary Care Provider: UNKNOWN Reviewed Notes: Nurses Notes, Medications, Allergies Allergies: Uncoded Allergies: black olives, shelfish,bluebarries (Allergy, Mild, 06/29/24) Home Meds Active Scripts Levetiracetam (KEPPRA TABLET) 500 Mg Tb, 500 MG PO BID for 30 Days, #60 TAB 1 Refill Prov:INDIO COREAS ELECTRICAL INSTRUMENT TECHNICIAN 07/01/24 Epinephrine (Anaphylaxis) (Auvi-Q) 0.1 Mg/0.1 Ml Inj, 0.1 MG IJ O PRN for 1 Day, #1 INJ prn severe allergic reaction. call 911 after administration. Prov:SAMUEL GAMINO MD 06/09/24 Prednisone (Prednisone) 20 Mg Tab, 40 MG PO DAILY for 4 Days, #8 TAB Prov:SAMUEL GAMINO MD 06/09/24 Famotidine (Pepcid AC) 20 Mg Tab, 20 MG PO BID PRN, #30 TAB prn allergy symptoms Prov:SAMUEL GAMINO MD 06/09/24 Cetirizine Hcl (Kls Aller-Negra) 10 Mg Tab, 1 TAB PO DAILY PRN, #30 TAB 3 Refills prn allergy symptoms Prov:SAMUEL GAMINO MD 06/09/24 Information Source: Patient Mode of Arrival: Ambulatory Timing: Days Duration: Since onset Prehospital treatment: None Quality: Pain Lids: Normal Conjunctiva: Normal Cornea: Normal Pupils: Normal EOM: Impaired, Normal Fundus: Normal Slit lamp exam: Normal Anterior chamber: Normal Mouth: Normal ENT Ear Exam: Normal Nose: Normal Sinuses: Normal Oropharynx: Normal Onset: Spontaneous Throat Exposed to: None History of: None Last Tetanus: Unknown Modifying factors: Nothing Associated signs and symptoms: Sore Throat Past Medical History PAST MEDICAL HISTORY: Denies Surgical History: Denies all surgeries Family History Family History: Reviewed,noncontributory to illness Social History Smoker: Non-Smoker Alcohol: Denies ETOH Use Drugs: Denies Drug Use Lives In: Home Constitutional: denies: chills, diaphoresis, fatigue, fever, malaise, sweats, weakness, others EENTM: reports: throat pain, throat swelling; denies: blurred vision, double vision, ear bleeding, ear discharge, ear drainage, ear pain, ear ringing, eye pain, eye redness, hearing loss, mouth pain, mouth swelling, nasal discharge, nose bleeding, nose congestion, nose pain, photophobia, tearing, voice changes, others Respiratory: denies: cough, hemoptysis, orthopnea, SOB at rest, shortness of breath, SOB with excertion, stridor, wheezing, others Cardiovascular: denies: chest pain, dizzy spells, diaphoresis, Dyspnea on exertion, edema, irregular heart beat, left arm pain, lightheadedness, palpitations, PND, syncope, others Gastrointestinal: denies: abdomen distended, abdominal pain, blood streaked bowels, constipated, diarrhea, dysphagia, difficulty swallowing, hematemesis, melena, nausea, poor appetite, poor fluid intake, rectal bleeding, rectal pain, vomiting, others Genitourinary: denies: burning, dysuria, flank pain, frequency, hematuria, incontinence, penile discharge, penile sore, pain, testicle pain, testicle swelling, urgency, others Neurological: denies: dizziness, fainting, headache, left sided numbness, left sided weakness, numbness, paresthesia, pre-existing deficit, right sided numbness, right sided weakness, seizure, speech problems, tingling, tremors, weakness, others Musculoskeletal: denies: back pain, gout, joint pain, joint swelling, muscle pain, muscle stiffness, neck pain, others Integumetry: denies: bruises, change in color, change in hair/nails, dryness, laceration, lesions, lumps, rash, wounds, others Allergic/Immunocompromised: denies: Difficulty Healing, Frequent Infections, Hives, Itching, others Hematologic/Lymphatic: denies: anemia, blood clots, easy bleeding, easy bruising, swollen glands, others Endocrine: denies: excessive hunger, excessive sweating, excessive thirst, excessive urination, flushing, intolerance to cold, intolerance to heat, unexplained weight gain, unexplained weight loss, others Psychiatric: denies: anxiety, bipolar disorder, depression, hopeless, panic disorder, schizophrenia, sleepless, suicidal, others All Other Systems: Reviewed and Negative Physical Exam General Appearance: No Apparent Distress, Normal HEENT: Normal ENT Inspection, Pharynx Normal, Other (uvula midline, 3+ bilateral tonsils) Neck: Full Range of Motion, Non-Tender, Normal, Normal Inspection Respiratory: Chest Non-Tender, Lungs Clear, No Accessory Muscle Use, No Respiratory Distress, Normal Breath Sounds Cardiovascular: No Edema, No Murmur, No Gallop, Normal Peripheral Pulses, Regular Rate/Rhythm Breast Exam: Deferred Gastrointestinal: No Organomegaly, Non Tender, No Pulsatile Mass, Normal Bowel Sounds, Soft Genitalia: Deferred Pelvic: Deferred Rectal: Deferred Extremities: No calf tenderness, Normal capillary refill, Normal inspection, Normal range of motion, Non-tender, No pedal edema Musculoskeletal : Apperance: Normal Neurologic: Alert, surgical rn II-XII nml as Tested, No Motor Deficits, Normal Affect, Normal Mood, No Sensory Deficits Cerebellar Function: Normal Reflexes: Normal Skin: Dry, Normal Color, Warm Lymphatic: No Adenopathy Was a procedure done? Was a procedure done?: No EENT DIFF Eye: N/A Sore Throat: Peritonsillar Abscess, Peritonsillar Cellulitis X-Ray, Labs, Meds, VS Vital Signs Date Time Temp Pulse Resp B/P (MAP) Pulse Ox O2 Delivery O2 Flow Rate FiO2 12/19/24 17:20 100.1 97 18 139/86 98 100.1 X-Ray, Labs, Meds, VS Comment Imaging was reviewed by this provider, there is no obvious pathological or acute disease process. Pending radiology review Labs were reviewed by this provider, no abnormalities Vital signs reviewed by this provider, clinically stable Time of 1ST Reevaluation: 18:30 Reevaluation 1ST: Unchanged Patient Education/Counseling: Diagnosis, Treatment, Need For Follow Up (Patient was follow up in 24 hours if symptoms have not improved. Patient verbalized understanding.) Family Education/Counseling: Diagnosis, Treatment SEPSIS Sepsis Screen Date sepsis recognized/suspect: Dec 19, 2024 Time Sepsis recognized/suspect: 1722 Recent Procedure: No On Antibiotic Therapy: No Respiratory Rate >20: No Heart Rate >90: No Temp<36 C (96.8 F) or >38.3 C: No SBP <90 or MAP <65 mmHG: No New Acute Mental Status Change: No Is the patient on CPAP, BIPAP,: No Vital Signs Date Time Temp Pulse Resp B/P (MAP) Pulse Ox O2 Delivery O2 Flow Rate FiO2 12/19/24 17:20 100.1 97 18 139/86 98 100.1 Departure 1 Departure Time of Disposition: 18:58 Impression: Primary Impression: Tonsillitis Disposition: HOME / SELF CARE / HOMELESS Condition: Fair e-Prescriptions Prednisone (Prednisone) 20 Mg Tab 20 MG PO DAILY for 5 Days, #5 MG Prov: STEVE MCKENZIE FIBER ANALYST 12/19/24 Amoxicillin & Pot Clavulanate (AUGMENTIN TABLET) 875 Mg Tb 875 MG PO BID for 7 Days, #14 TAB Prov: STEVE MCKENZIE FIBER ANALYST 12/19/24 Discharged With: Self Critical Care Note Critical Care Time?: No Stability Stability form required: No Heart Score Heart Score: Heart Score Response (Comments) Value History N/A 0 EKG N/A 0 Age N/A 0 Risk Factors N/A 0 Troponin N/A 0 Total 0 I personally scribed for STEVE MCKENZIE FIBER ANALYST ([email or web address]) on 12/19/24 at 18:14. Electronically submitted by Roxann Arias ([email or web address]). I personally scribed for STEVE MCKENZIE FIBER ANALYST ([email or web address]) on 12/19/24 at 18:20. Electronically submitted by Roxann Arias ([email or web address]). STEVE MCKENZIE FIBER ANALYST Dec 19, 2024 18:14
[2024-12-19] MEDS: cefTRIAXone SOD 1,000 MG VL IM ONE (18:30)
[2024-12-19] MEDS: methylPREDNISolone SOD SUCC 125 MG/2 ML VL IM ONE (18:30)
[2024-12-19] MEDS ORDERED: AUG875T PO (19:01)
[2024-12-19] MEDS ORDERED: PRED20TA2 PO (19:01)
== END 2024-12-19 19:21 | disposition home or self-care (01) ==
LOC: ER 17:19
DX: J03.90 Acute tonsillitis, unspecified (principal); Z79.899 Other long term (current) drug therapy
CPT/HCPCS: 96372; 99284; J0696; J2919

== ENCOUNTER 2025-02-02 18:31 | Emergency (ER) | payer MEDICAID ==
[~2025-02-02] VITALS: Ht 185.4 cm; Wt 68.9 kg
[~2025-02-02 18:31] MED LIST changes: +AUG875T PO
--- NOTE | 2025-02-02 21:15 | ED.PDOC ---
History of Present Illness HPI Comments 19-year-old male presents to the ER with a chief complaint of jaw pain. Patient reports on having right jaw swelling first started a toothache on Friday of 01/31/2025 the patient had mild swelling on 06/04/2024 and today the patient had severe swelling associated with bleeding in the area. Patient notes on having similar symptoms in the past. Patient does not have a dentist but he is looking for one. Denies chills, fever, N/V/D, SOB, CP. No other associated symptoms, modifiers, recent injuries or sick contacts present at this time. Chief Complaint: Jaw Pain Time Seen by MD: 21:15 Primary Care Provider: UNKNOWN Reviewed Notes: Nurses Notes, Medications, Allergies Allergies: Uncoded Allergies: black olives, shelfish,bluebarries (Allergy, Mild, 06/29/24) Home Meds Active Scripts Amoxicillin & Pot Clavulanate (AUGMENTIN TABLET) 875 Mg Tb, 875 MG PO BID for 7 Days, #14 TAB Prov:STEVE MCKENZIE DELIVERY MGR 12/19/24 Prednisone (Prednisone) 20 Mg Tab, 40 MG PO DAILY for 4 Days, #8 TAB Prov:STEVE MCKENZIE DELIVERY MGR 12/19/24 Prednisone (Prednisone) 20 Mg Tab, 20 MG PO DAILY for 5 Days, #5 MG Prov:STEVE MCKENZIE DELIVERY MGR 25 Levetiracetam (KEPPRA TABLET) 500 Mg Tb, 500 MG PO BID for 30 Days, #60 TAB 1 Refill Prov:INDIO COREAS NP 07/01/24 Epinephrine (Anaphylaxis) (Auvi-Q) 0.1 Mg/0.1 Ml Inj, 0.1 MG IJ O PRN for 1 Day, #1 INJ prn severe allergic reaction. call 911 after administration. Prov:SAMUEL GAMINO MD 06/09/24 Famotidine (Pepcid AC) 20 Mg Tab, 20 MG PO BID PRN, #30 TAB prn allergy symptoms Prov:SAMUEL GAMINO MD 06/09/24 Cetirizine Hcl (Kls Aller-Negra) 10 Mg Tab, 1 TAB PO DAILY PRN, #30 TAB 3 Refills prn allergy symptoms Prov:SAMUEL GAMINO MD 06/09/24 Information Source: Patient Mode of Arrival: Ambulatory Severity: Moderate Timing: Days Duration: Since onset, Days Prehospital treatment: None Past Medical History PAST MEDICAL HISTORY: Denies Surgical History: Denies all surgeries Family History Family History: Reviewed,noncontributory to illness, Unknown Social History Smoker: Non-Smoker Alcohol: Denies ETOH Use Drugs: Denies Drug Use Lives In: Home Constitutional: denies: chills, diaphoresis, fatigue, fever, malaise, sweats, weakness, others EENTM: reports: mouth pain, mouth swelling; denies: blurred vision, double vision, ear bleeding, ear discharge, ear drainage, ear pain, ear ringing, eye pain, eye redness, hearing loss, nasal discharge, nose bleeding, nose congestion, nose pain, photophobia, tearing, throat pain, throat swelling, voice changes, others Respiratory: denies: cough, hemoptysis, orthopnea, SOB at rest, shortness of breath, SOB with excertion, stridor, wheezing, others Cardiovascular: denies: chest pain, dizzy spells, diaphoresis, Dyspnea on exertion, edema, irregular heart beat, left arm pain, lightheadedness, palpitations, PND, syncope, others Gastrointestinal: denies: abdomen distended, abdominal pain, blood streaked bowels, constipated, diarrhea, dysphagia, difficulty swallowing, hematemesis, melena, nausea, poor appetite, poor fluid intake, rectal bleeding, rectal pain, vomiting, others Genitourinary: denies: burning, dysuria, flank pain, frequency, hematuria, incontinence, penile discharge, penile sore, pain, testicle pain, testicle swelling, urgency, others Neurological: denies: dizziness, fainting, headache, left sided numbness, left sided weakness, numbness, paresthesia, pre-existing deficit, right sided numbness, right sided weakness, seizure, speech problems, tingling, tremors, weakness, others Musculoskeletal: denies: back pain, gout, joint pain, joint swelling, muscle pain, muscle stiffness, neck pain, others Integumetry: denies: bruises, change in color, change in hair/nails, dryness, laceration, lesions, lumps, rash, wounds, others Allergic/Immunocompromised: denies: Difficulty Healing, Frequent Infections, Hives, Itching, others Hematologic/Lymphatic: denies: anemia, blood clots, easy bleeding, easy bruising, swollen glands, others Endocrine: denies: excessive hunger, excessive sweating, excessive thirst, excessive urination, flushing, intolerance to cold, intolerance to heat, unexplained weight gain, unexplained weight loss, others Psychiatric: denies: anxiety, bipolar disorder, depression, hopeless, panic disorder, schizophrenia, sleepless, suicidal, others All Other Systems: Reviewed and Negative Physical Exam General Appearance: No Apparent Distress, Normal HEENT: Normal ENT Inspection, Pharynx Normal, TMs Normal, Other (Left jaw swelling) Neck: Full Range of Motion, Non-Tender, Normal, Normal Inspection Respiratory: Chest Non-Tender, Lungs Clear, No Accessory Muscle Use, No Respiratory Distress, Normal Breath Sounds Cardiovascular: No Edema, No JVD, No Murmur, No Gallop, Normal Peripheral Pulses, Regular Rate/Rhythm Breast Exam: Deferred Gastrointestinal: No Organomegaly, Non Tender, No Pulsatile Mass, Normal Bowel Sounds, Soft Genitalia: Deferred Pelvic: Deferred Rectal: Deferred Extremities: No calf tenderness, Normal capillary refill, Normal inspection, Normal range of motion, Non-tender, No pedal edema Musculoskeletal : Apperance: Normal Neurologic: Alert, acid regenerator II-XII nml as Tested, No Motor Deficits, Normal Affect, Normal Mood, No Sensory Deficits Cerebellar Function: Normal Reflexes: Normal Skin: Dry, Normal Color, Warm Lymphatic: No Adenopathy Was a procedure done? Was a procedure done?: No Differential Dx Considerations may include: Dental abscess, dental caries, tonsillitis, peritonsillar abscess, X-Ray, Labs, Meds, VS Vital Signs Date Time Temp Pulse Resp B/P (MAP) Pulse Ox O2 Delivery O2 Flow Rate FiO2 02/02/25 18:41 98.3 103 18 130/81 100 98.3 Current Medications Medications (Trade) Dose Ordered Sig/Jose Route Start Time Stop Time Status Last Admin Ceftriaxone Sodium (Rocephin) 1,000 mg ONCE ONCE IM 02/02/25 21:30 02/02/25 21:31 DC 02/02/25 21:45 Ketorolac Tromethamine (Toradol Injection) 30 mg ONCE ONCE IM 02/02/25 21:30 02/02/25 21:31 DC 02/02/25 21:45 X-Ray, Labs, Meds, VS Comment Imaging was reviewed by this provider, there is no obvious pathological or acute disease process. Pending radiology review Labs were reviewed by this provider, no abnormalities Vital signs reviewed by this provider, clinically stable Time of 1ST Reevaluation: 21:45 Reevaluation 1ST: Unchanged Patient Education/Counseling: Diagnosis, Treatment, Prognosis, Need For Follow Up (Follow up with dentist next available appointment. Return to the emergency department next 24 hours if symptoms worsen.) Family Education/Counseling: No Family Present SEPSIS Sepsis Screen Date sepsis recognized/suspect: Feb 02, 2025 Time Sepsis recognized/suspect: 1841 Recent Procedure: No On Antibiotic Therapy: No Respiratory Rate >20: No Heart Rate >90: Yes Temp<36 C (96.8 F) or >38.3 C: No SBP <90 or MAP <65 mmHG: No New Acute Mental Status Change: No Is the patient on CPAP, BIPAP,: No Vital Signs Date Time Temp Pulse Resp B/P (MAP) Pulse Ox O2 Delivery O2 Flow Rate FiO2 02/02/25 18:41 98.3 103 18 130/81 100 98.3 Medications Medications Dose Ordered Sig/Jose Route Start Time Stop Time Status Last Admin Dose Admin Ceftriaxone Sodium 1,000 mg ONCE ONCE IM 02/02/25 21:30 02/02/25 21:31 DC 02/02/25 21:45 Ketorolac Tromethamine 30 mg ONCE ONCE IM 02/02/25 21:30 02/02/25 21:31 DC 02/02/25 21:45 Departure 1 Departure Time of Disposition: 22:41 Impression: Primary Impression: Dental abscess Disposition: HOME / SELF CARE / HOMELESS Condition: Fair e-Prescriptions Ibuprofen Micronized (Ibuprofen) 800 Mg Tab 800 MG PO TID PRN, #40 TAB Prov: STEVE MCKENZIE DELIVERY MGR 02/02/25 Amoxicillin & Pot Clavulanate (AUGMENTIN TABLET) 875 Mg Tb 875 MG PO BID for 10 Days, #20 TAB Prov: STEVE MCKENZIE DELIVERY MGR 02/02/25 Discharged With: Self Critical Care Note Critical Care Time?: No Stability Stability form required: No Heart Score Heart Score: Heart Score Response (Comments) Value History N/A 0 EKG N/A 0 Age N/A 0 Risk Factors N/A 0 Troponin N/A 0 Total 0 I personally scribed for STEVE MCKENZIE ([email or web address]) on 02/02/25 at 21:15. Electronically submitted by Abel Rodríguez ([email or web address]). STEVE MCKENZIE Feb 02, 2025 21:15
[2025-02-02] MEDS: KETOROLAC TROMETH 30 MG/ML 1ML VIAL IM ONE (21:45)
[2025-02-02] MEDS: cefTRIAXone SOD 1,000 MG VL IM ONE (21:45)
[2025-02-02] MEDS: LIDOCAINE 1% HCL (LOCAL ANESTH.) INJ 20ML MDV ONE (22:27)
[2025-02-02] MEDS ORDERED: IBUP-1455 PO (22:42)
[2025-02-02 23:10] VITALS: BP 126/86; PULSE 84; TEMP 99.2; O2SAT 100
[2025-02-02 23:29] VITALS: RESP 20
== END 2025-02-02 23:31 | disposition home or self-care (01) ==
LOC: ER 18:33
DX: K04.7 Periapical abscess without sinus (principal); Z79.899 Other long term (current) drug therapy
CPT/HCPCS: 96372; 99284; J0696; J1885; J2003